=== PATIENT | male | born 1965 | race Caucasian/White ===

== ENCOUNTER 2018-05-01 19:01 | Emergency (ER) | payer OTHER, SELFPAY ==
--- NOTE | 2018-05-01 20:56 | EDPHYS ---
Physician Documentation [facility] Name: Shane Navarro Jr Age: 52 yrs Sex: Male : 1965 Arrival Date: 05/01/2018 Time: 19:16 Bed 16 Private MD: ED Physician Keyshawn Biggs HPI: 05/01 20:05 This 52 yrs old Male presents to ER via Ambulatory with complaints of Thumb cp Injury. 20:05 The patient or guardian reports a contusion, pain, swelling, tenderness. The complaints cp affect the distal phalanx right thumb. 20:05 Context: resulted from a crush injury. Onset: The symptoms/episode began/occurred last cp week. Patient [facility] right thumb showing fracture of distal phalanx. Patient reports he has referral to hand surgeon for injury. No other complaints. Historical: - Allergies: 19:18 No Known Allergies; ak1 - Home Meds: 19:18 amlodipine oral [Active]; ak1 - PMHx: 19:18 Hypertension; ak1 - PSHx: 19:18 None; ak1 - Immunization history:: Adult Immunizations unknown, Last tetanus immunization: < 5 years ago. - Social history:: Smoking status: Patient uses tobacco products. - Ebola Screening: : No symptoms or risks identified at this time. ROS: 20:10 Constitutional: Negative for body aches, chills, fever, poor PO intake. cp 20:10 Eyes: Negative for injury, pain, redness, and discharge. cp 20:10 Cardiovascular: Negative for chest pain, palpitations. 20:10 Respiratory: Negative for cough, shortness of breath, wheezing. 20:10 Abdomen/GI: Negative for abdominal pain, nausea, vomiting, and diarrhea. 20:10 MS/extremity: Positive for contusion, ecchymosis, pain, swelling, tenderness, of the distal phalanx right thumb, Negative for decreased range of motion, paresthesias. 20:10 Neuro: Negative for numbness. 20:10 All other systems are negative. Exam: 20:15 Constitutional: The patient appears in no acute distress, alert, awake, non-toxic, well cp developed, well nourished. 20:15 Head/Face: Normocephalic, atraumatic. cp 20:15 Eyes: Periorbital structures: appear normal, Conjunctiva: normal, Lids and lashes: appear normal, bilaterally. 20:15 ENT: External ear(s): are unremarkable, Nose: is normal, Mouth: is normal, Posterior pharynx: is normal, airway is patent. 20:15 Chest/axilla: Inspection: normal. 20:15 Cardiovascular: Rate: normal. 20:15 Respiratory: the patient does not display signs of respiratory distress, Respirations: normal. 20:15 Abdomen/GI: Exam negative for discomfort, distension, guarding, Inspection: abdomen appears normal. 20:15 Musculoskeletal/extremity: Extremities: grossly normal except: noted in the right thumb distal phalanx: ecchymosis, pain, swelling, tenderness, There is no evidence of decreased ROM, Perfusion: the extremity is normally perfused throughout, Sensation intact. Vital Signs: 19:18 BP 160 / 88; Pulse 66; Resp 18; Temp 97.8; Pulse Ox 96% on R/A; Weight 138.8 kg (R); ak1 Height 5 ft. 10 in. (177.80 cm) (R); Pain 4/10; 21:00 BP 148 / 82; Pulse 62; Resp 16; Pulse Ox 100% ; kr2 19:18 Body Mass Index 43.91 (138.80 kg, 177.80 cm) ak1 Procedures: 21:15 Splinting: Splint applied to right thumb using finger splint, applied by tech. Examined cp by me, post splint application: neurovascular intact, Patient tolerated well. MDM: 19:45 Patient medically screened. cp 20:45 Differential diagnosis: open fracture, closed fracture, contusion, cellulitis, abscess. cp 21:55 Data reviewed: vital signs, nurses notes, and as a result, I will discharge patient. cp 21:55 Counseling: I had a detailed discussion with the patient and/or guardian regarding: the cp historical points, exam findings, and any diagnostic results supporting the discharge/admit diagnosis, the need for outpatient follow up, a hand specialist, to return to the emergency department if symptoms worsen or persist or if there are any questions or concerns that arise at home. Response to treatment: the patient's symptoms have markedly improved after treatment, and as a result, I will discharge patient. 05/01 20:01 Order name: [facility]. Order: hand held cautery; Complete Time: 20:46 cp 05/01 20:48 Order name: Finger Splint; Complete Time: 21:16 cp 05/01 20:48 Order name: Wound dressing; Complete Time: 21:16 cp Administered Medications: No medications were administered Disposition: 05/01/18 20:55 Discharged to Home. Impression: Right Thumb Subungual Hematoma, Displaced fracture of distal phalanx of right thumb. - Condition is Stable. - Discharge Instructions: Subungual Hematoma, Thumb Fracture. - Prescriptions for Keflex 500 mg Oral Capsule - take 1 capsule by ORAL route every 8 hours for 10 days; 30 capsule. Anaprox DS 550 mg Oral Tablet - take 1 tablet by ORAL route every 12 hours As needed; 20 tablet. - Medication Reconciliation Form, Thank You Letter, Antibiotic Education, Prescription Opioid Use form. - Follow up: Private Physician; When: 2 - 3 days; Reason: right thumb fracture. - Problem is new. - Symptoms have improved. Addendum: 05/03/2018 06:40 Co-signature as Attending Physician, Keyshawn Biggs MD I agree with the assessment and c fam plan of care. Signatures: Keyshawn Biggs MD MD cha Krenek, Amber, RN RN ak1 Keyshawn Calderon PA PA cp Sylvia Bell, RN RN kr2 Corrections: (The following items were deleted from the chart) 05/01 21:22 20:55 05/01/2018 20:55 Discharged to Home. Impression: Right Thumb Subungual Hematoma; kr2 Displaced fracture of distal phalanx of right thumb. Condition is Stable. Forms are Medication Reconciliation Form, Thank You Letter, Antibiotic Education, Prescription Opioid Use. Follow up: Private Physician; When: 2 - 3 days; Reason: right thumb fracture. Problem is new. Symptoms have improved. cp
--- NOTE | 2018-05-01 20:56 | ER ---
Nurse's Notes [facility] Name: Shane Navarro Jr Age: 52 yrs Sex: Male : 1965 Arrival Date: 05/01/2018 Time: 19:16 Bed 16 Private MD: Diagnosis: Right Thumb Subungual Hematoma;Displaced fracture of distal phalanx of right thumb Presentation: 05/01 19:16 Presenting complaint: Patient states: right thumb hit metal bar last Friday. pt seen ak1 at [facility] with possible fx to right thumb. Transition of care: patient was not received from another setting of care. Onset of symptoms is unknown. Risk Assessment: Do you want to hurt yourself or someone else? Patient reports no desire to harm self or others. Initial Sepsis Screen: Does the patient meet any 2 criteria? No. Patient's initial sepsis screen is negative. Does the patient have a suspected source of infection? No. Patient's initial sepsis screen is negative. Care prior to arrival: None. 19:16 Method Of Arrival: Ambulatory ak1 19:16 Acuity: SANDEE 4 ak1 Triage Assessment: 19:18 General: Appears in no apparent distress. Behavior is calm, cooperative. ak1 Historical: - Allergies: 19:18 No Known Allergies; ak1 - Home Meds: 19:18 amlodipine oral [Active]; ak1 - PMHx: 19:18 Hypertension; ak1 - PSHx: 19:18 None; ak1 - Immunization history:: Adult Immunizations unknown, Last tetanus immunization: < 5 years ago. - Social history:: Smoking status: Patient uses tobacco products. - Ebola Screening: : No symptoms or risks identified at this time. Screenin:45 Abuse screen: Denies threats or abuse. Denies injuries from another. Nutritional kr2 screening: No deficits noted. Tuberculosis screening: No symptoms or risk factors identified. Fall Risk None identified. Assessment: 19:45 General: Appears in no apparent distress. comfortable, well groomed, well developed, kr2 well nourished, Behavior is calm, cooperative, appropriate for age. Pain: Complains of pain in right thumb Pain currently is 4 out of 10 on a pain scale. Quality of pain is described as aching, tender, Is continuous, Alleviated by medications, rest. Neuro: Level of Consciousness is awake, alert, obeys commands, Oriented to person, place, time, situation, Appropriate for age [employer] are equal bilaterally Intact. Cardiovascular: Capillary refill < 3 seconds in bilateral fingers Patient's skin is warm and dry. Respiratory: Airway is patent Respiratory effort is even, unlabored, Respiratory pattern is regular, symmetrical. Derm: Skin is intact, is healthy with good turgor. Musculoskeletal: Range of motion: limited in right thumb Swelling present in right thumb. 21:15 Reassessment: Patient appears in no apparent distress at this time. Patient and/or kr2 family updated on plan of care and expected duration. Pain level reassessed. Patient is alert, oriented x 3, equal unlabored respirations, skin warm/dry/pink. Wound care and splint application completed by PHILLIP Chaidez. Vital Signs: 19:18 BP 160 / 88; Pulse 66; Resp 18; Temp 97.8; Pulse Ox 96% on R/A; Weight 138.8 kg (R); ak1 Height 5 ft. 10 in. (177.80 cm) (R); Pain 4/10; 21:00 BP 148 / 82; Pulse 62; Resp 16; Pulse Ox 100% ; kr2 19:18 Body Mass Index 43.91 (138.80 kg, 177.80 cm) ak1 ED Course: 19:16 Patient arrived in ED. ak1 19:17 Triage completed. ak1 19:18 Arm band placed on Patient placed in an exam room, on a stretcher, Patient notified of ak1 wait time. 19:45 Keyshawn Calderon PA is PHCP. cp 19:45 Keyshawn Biggs MD is Attending Physician. cp 19:45 Patient has correct armband on for positive identification. Bed in low position. Call kr2 light in reach. Side rails up X 1. Pulse ox on. NIBP on. Door closed. Head of bed elevated. 19:45 No provider procedures requiring assistance completed. Patient did not have IV access kr2 during this emergency room visit. 20:46 Sylvia Bell, PHILLIP is Primary Nurse. kr2 Administered Medications: No medications were administered Outcome: 20:55 Discharge ordered by . cp 21:15 Discharged to home ambulatory. kr2 21:15 Condition: good 21:15 Discharge instructions given to patient, Instructed on discharge instructions, follow up and referral plans. wound care, splint use Demonstrated understanding of instructions, follow-up care, medications, wound care, splint care, Prescriptions given X 2. 21:22 Patient left the ED. kr2 Signatures: Fabienne Olmstead RN RN ak1 Keyshawn Calderon PA PA cp Reaves, Karey, RN RN kr2 Corrections: (The following items were deleted from the chart) 23:59 21:15 Discharge instructions given to patient, Instructed on discharge instructions, kr2 follow up and referral plans. wound care, splint use Demonstrated understanding of instructions, follow-up care, medications, wound care, splint care, Prescriptions given X 1, kr2
== END 2018-05-01 21:22 | disposition home or self-care (01) ==
LOC: ER 19:01
DX: S62.521A Displaced fracture of distal phalanx of right thumb, initial encounter for closed fracture (principal); S60.011A Contusion of right thumb without damage to nail, initial encounter; I10 Essential (primary) hypertension; W22.8XXA Striking against or struck by other objects, initial encounter; Y93.9 Activity, unspecified; Y92.9 Unspecified place or not applicable
CPT/HCPCS: 99283

== ENCOUNTER 2018-12-07 07:49 | Emergency (ER) | payer OTHER ==
--- NOTE | 2018-12-07 09:08 | ER ---
Nurse's Notes [facility] Name: Shane Navarro Jr Age: 53 yrs Sex: Male : 1965 Arrival Date: 12/07/2018 Time: 07:53 Bed 12 Private MD: Unknown, Unknown Diagnosis: Dental caries;Dental root caries Presentation: 12/07 07:57 Presenting complaint: Patient states: left jaw swelling started today and started sv having left jaw pain 2 days ago. Transition of care: patient was not received from another setting of care. Onset of symptoms was December 07, 2018. Care prior to arrival: None. 07:57 Method Of Arrival: Ambulatory sv 07:57 Acuity: SANDEE 3 sv 07:58 Initial Sepsis Screen: Does the patient meet any 2 criteria? No. Patient's initial sv sepsis screen is negative. Does the patient have a suspected source of infection? No. Patient's initial sepsis screen is negative. 09:13 Risk Assessment: Do you want to hurt yourself or someone else? Patient reports no ss desire to harm self or others. Triage Assessment: 07:57 General: Appears in no apparent distress. well groomed, well developed, Behavior is sv calm, cooperative, appropriate for age. Pain: Complains of pain in left cheek and left mandible Pain currently is 4 out of 10 on a pain scale. Pain began this morning. EENT: Reports pain in left cheek and left mandible. Neuro: Level of Consciousness is awake, alert, obeys commands, Oriented to person, place, time, situation, Gait is steady. Respiratory: Airway is patent Respiratory effort is even, unlabored, Respiratory pattern is regular, symmetrical. Derm: Skin is pink, warm \T\ dry. Musculoskeletal: Swelling present in left cheek and left mandible. Historical: - Allergies: 07:58 No Known Allergies; sv - PMHx: 07:58 Hypertension; sv - PSHx: 07:58 None; sv - Immunization history:: Adult Immunizations up to date. - Social history:: Smoking status: Patient/guardian denies using tobacco. - Ebola Screening: : No symptoms or risks identified at this time. Screenin:57 Abuse screen: Denies threats or abuse. Denies injuries from another. Nutritional sv screening: No deficits noted. Tuberculosis screening: No symptoms or risk factors identified. Fall Risk None identified. Assessment: 07:57 Reassessment: Patient appears in no apparent distress at this time. No changes from previously documented assessment. See triage assessment. 09:07 Reassessment: Patient appears in no apparent distress at this time. Patient and/or ss family updated on plan of care and expected duration. Pain level reassessed. Patient is alert, oriented x 3, equal unlabored respirations, skin warm/dry/pink. pt is grateful for care received thus far. Vital Signs: 07:58 BP 169 / 94; Pulse 61; Resp 18; Temp 97.9; Pulse Ox 100% ; Weight 138.35 kg; Height 5 sv ft. 10 in. (177.80 cm); Pain 4/10; 07:58 Body Mass Index 43.76 (138.35 kg, 177.80 cm) sv Wheeler Coma Score: 09:02 Eye Response: spontaneous(4). Verbal Response: oriented(5). Motor Response: obeys al[place] commands(6). Total: 15. ED Course: 07:53 Patient arrived in ED. ag5 07:53 Unknown, Unknown is Private Physician. ag5 07:57 Patient has correct armband on for positive identification. Call light in reach. Door sv closed. 07:58 Triage completed. sv 07:58 Arm band placed on. sv 08:13 Keyshawn Biggs MD is Attending Physician. alisson 08:19 Magali Duran, PHILLIP is Primary Nurse. ss 09:07 No provider procedures requiring assistance completed. Patient did not have IV access ss during this emergency room visit. Administered Medications: 09:07 Drug: Clindamycin 300 mg Route: PO; 09:13 Follow up: Response: Medication administered at discharge. Outcome: 09:08 Discharge ordered by . [facility] 09:12 Discharged to home ambulatory. 09:12 Condition: good 09:12 Discharge instructions given to patient, Instructed on discharge instructions, follow up and referral plans. medication usage, Demonstrated understanding of instructions, follow-up care, medications, Prescriptions given X 2. 09:13 Patient left the ED. Signatures: Margaret Menon, RN RN Keyshawn Biggs MD MD cha Smirch, Shelby, RN RN Qian Kd ag5
--- NOTE | 2018-12-07 09:08 | EDPHYS ---
Physician Documentation [facility] Name: Shane Navarro Jr Age: 53 yrs Sex: Male : 1965 Arrival Date: 12/07/2018 Time: 07:53 Bed 12 Private MD: Unknown, Unknown ED Physician Keyshawn Biggs HPI: 12/07 09:02 This 53 yrs old Male presents to ER via Ambulatory with complaints of SWOLLEN alisson JAW. 09:02 The patient or guardian reports pain, swelling, tenderness. The complaints affect the alisson left jaw. Context of injury: The problem was sustained at an unknown location. Onset: The symptoms/episode began/occurred 3 day(s) ago. Associated signs and symptoms: The patient has no apparent associated signs or symptoms. Historical: - Allergies: 07:58 No Known Allergies; sv - PMHx: 07:58 Hypertension; sv - PSHx: 07:58 None; sv - Immunization history:: Adult Immunizations up to date. - Social history:: Smoking status: Patient/guardian denies using tobacco. - Ebola Screening: : No symptoms or risks identified at this time. ROS: 09:04 Constitutional: Negative for fever, chills, and weight loss, Eyes: Negative for injury, alisson pain, redness, and discharge, Neck: Negative for injury, pain, and swelling, Cardiovascular: Negative for chest pain, palpitations, and edema, Respiratory: Negative for shortness of breath, cough, wheezing, and pleuritic chest pain, Abdomen/GI: Negative for abdominal pain, nausea, vomiting, diarrhea, and constipation, Back: Negative for injury and pain, : Negative for injury, bleeding, discharge, and swelling, MS/Extremity: Negative for injury and deformity, Skin: Negative for injury, rash, and discoloration, Neuro: Negative for headache, weakness, numbness, tingling, and seizure, Psych: Negative for depression, anxiety, suicide ideation, homicidal ideation, and hallucinations, Allergy/Immunology: Negative for hives, rash, and allergies, Endocrine: Negative for neck swelling, polydipsia, polyuria, polyphagia, and marked weight changes, Hematologic/Lymphatic: Negative for swollen nodes, abnormal bleeding, and unusual bruising. 09:04 ENT: Positive for Teeth pain Exam: 09:04 Constitutional: This is a well developed, well nourished patient who is awake, alert, alisson and in no acute distress. Eyes: Pupils equal round and reactive to light, extra-ocular motions intact. Lids and lashes normal. Conjunctiva and sclera are non-icteric and not injected. Cornea within normal limits. Periorbital areas with no swelling, redness, or edema. ENT: Nares patent. No nasal discharge, no septal abnormalities noted. Tympanic membranes are normal and external auditory canals are clear. Oropharynx with no redness, swelling, or masses, exudates, or evidence of obstruction, uvula midline. Mucous membranes moist. Neck: Trachea midline, no thyromegaly or masses palpated, and no cervical lymphadenopathy. Supple, full range of motion without nuchal rigidity, or vertebral point tenderness. No Meningismus. Chest/axilla: Normal chest wall appearance and motion. Nontender with no deformity. No lesions are appreciated. Cardiovascular: Regular rate and rhythm with a normal S1 and S2. No gallops, murmurs, or rubs. Normal PMI, no JVD. No pulse deficits. Respiratory: Lungs have equal breath sounds bilaterally, clear to auscultation and percussion. No rales, rhonchi or wheezes noted. No increased work of breathing, no retractions or nasal flaring. Abdomen/GI: Soft, non-tender, with normal bowel sounds. No distension or tympany. No guarding or rebound. No evidence of tenderness throughout. Back: No spinal tenderness. No costovertebral tenderness. Full range of motion. Male : Normal genitalia with no discharge or lesions. Skin: Warm, dry with normal turgor. Normal color with no rashes, no lesions, and no evidence of cellulitis. MS/ Extremity: Pulses equal, no cyanosis. Neurovascular intact. Full, normal range of motion. Neuro: Awake and alert, GCS 15, oriented to person, place, time, and situation. Cranial nerves II-XII grossly intact. Motor strength 5/5 in all extremities. Sensory grossly intact. Cerebellar exam normal. Normal gait. Psych: Awake, alert, with orientation to person, place and time. Behavior, mood, and affect are within normal limits. 09:04 Head/face: Noted is swelling, that is mild, of the left jaw. Vital Signs: 07:58 BP 169 / 94; Pulse 61; Resp 18; Temp 97.9; Pulse Ox 100% ; Weight 138.35 kg; Height 5 sv ft. 10 in. (177.80 cm); Pain 4/10; 07:58 Body Mass Index 43.76 (138.35 kg, 177.80 cm) sv Vin Coma Score: 09:02 Eye Response: spontaneous(4). Verbal Response: oriented(5). Motor Response: obeys [place] commands(6). Total: 15. MDM: 08:13 Patient medically screened. [place] 09:07 Data reviewed: vital signs, nurses notes. [place] Administered Medications: 09:07 Drug: Clindamycin 300 mg Route: PO; 09:13 Follow up: Response: Medication administered at discharge. Disposition: 12/07/18 09:08 Discharged to Home. Impression: Dental caries, Dental root caries. - Condition is Stable. - Discharge Instructions: Dental Abscess, Dental Caries, Adult, Dental Pain, Dental Pain, [id number]. - Prescriptions for Clindamycin HCl 300 mg Oral Capsule - take 1 capsule by ORAL route every 6 hours for 10 days; 40 capsule. Tylenol- Codeine #3 300-30 mg Oral Tablet - take 2 tablet by ORAL route every 6 hours As needed; 30 tablet. - Medication Reconciliation Form, Thank You Letter, Antibiotic Education, Prescription Opioid Use form. - Follow up: Private Physician; When: 2 - 3 days; Reason: Recheck today's complaints, Continuance of care, Re-evaluation by your physician. - Problem is new. - Symptoms have improved. Signatures: Margaret Menon RN RN Keyshawn Biggs MD MD cha Smirch, Shelby RN RN ss Corrections: (The following items were deleted from the chart) 09:13 09:08 12/07/2018 09:08 Discharged to Home. Impression: Dental caries; Dental root ss caries. Condition is Stable. Forms are Medication Reconciliation Form, Thank You Letter, Antibiotic Education, Prescription Opioid Use. Follow up: Private Physician; When: 2 - 3 days; Reason: Recheck today's complaints, Continuance of care, Re-evaluation by your physician. Problem is new. Symptoms have improved. alisson
[2018-12-07] MEDS ORDERED: CLINDAMYCIN HCL 150 MG CAP ONE (09:19)
== END 2018-12-07 09:13 | disposition home or self-care (01) ==
LOC: ER 07:49
DX: K02.7 Dental root caries (principal); K02.9 Dental caries, unspecified; I10 Essential (primary) hypertension
CPT/HCPCS: 99283